=== PATIENT | female | born 1955 | race African-American/Black ===

== ENCOUNTER → 2018-09-28 | Outpatient (CLI) | payer BC | LOC: RAD 08:55 | DX: R07.81 Pleurodynia (principal); Z90.49 Acquired absence of other specified parts of digestive tract ==

== ENCOUNTER → 2018-09-29 | Outpatient (CLI) | payer BC | LOC: LABMALL 15:19 | PROVIDERS: Internal Medicine | DX: K44.9 Diaphragmatic hernia without obstruction or gangrene (principal); R07.81 Pleurodynia; J98.11 Atelectasis ==